=== PATIENT | male | born 1975 | race Caucasian/White ===

== ENCOUNTER 2019-02-21 18:29 | Emergency (ER) | payer OTHER ==
[~2019-02-21] VITALS: Ht 180.3 cm; Wt 95.3 kg
== END 2019-02-21 21:20 | disposition home or self-care (01) ==
LOC: ER 18:29
DX: L02.211 Cutaneous abscess of abdominal wall (principal)

== ENCOUNTER 2019-02-22 19:31 | Emergency (ER) | payer OTHER ==
[~2019-02-22] VITALS: Ht 180.3 cm; Wt 99.8 kg
== END 2019-02-22 22:31 | disposition home or self-care (01) ==
LOC: ER 19:31
DX: L03.311 Cellulitis of abdominal wall (principal)